=== PATIENT | male | born 1980 | race Caucasian/White ===

== ENCOUNTER 2017-08-06 17:06 | Emergency (ER) | payer OTHER ==
[~2017-08-06] VITALS: Ht 167.6 cm; Wt 79.5 kg
[2017-08-06] MEDS ORDERED: ZYPREXA 5MG5 MG PO (17:15)
[2017-08-06] MEDS ORDERED: REMERON45 MG PO (17:15)
[2017-08-06 18:02] LABS: COLLECTION METHOD CLEAN CATCH
[2017-08-06 18:10] LABS: MUCOUS Present /lpf; PH 5 (5-8); SQUAMOUS EPITHELIAL None Seen /hpf; URINE APPEARANCE Clear; URINE BACTERIA None Seen /hpf; URINE BILIRUBIN Negative (NEGATIVE); URINE BLOOD Negative (NEGATIVE); URINE COLOR Yellow; URINE GLUCOSE Negative (NEGATIVE); URINE KETONE Negative (NEGATIVE); URINE LEUKOCYTE ESTERASE Negative (NEGATIVE); URINE NITRATE Negative (NEGATIVE); URINE PROTEIN(semi-quant) Negative (NEGATIVE); URINE RBC 0-2 /hpf; URINE UROBILINOGEN Negative (NEGATIVE)
[2017-08-06 18:22] LABS: BASO # 0.1 (0.0-0.2); BASO % 0.8 % (0.0-2.0); EOS % 0.3 % (0-4.0); GRAN # 6.8 (1.4-6.5); GRAN % 75.2 % (42.2-75.2); HEMATOCRIT 45.4 % (42.0-52.0); HEMOGLOBIN 15.1 g/dl (13.5-18.0); LYMPH % 10.5 % (20.0-51.0); MEAN CELL VOLUME 88 fl (80.0-100.0); MEAN CORPUSCULAR HEMOGLOBIN 29 pg (27.0-31.0); MEAN CORPUSCULAR HGB CONC 33 g/dl (33.0-37.0); MEAN PLATELET VOLUME 10.3 fl (7.4-10.4); MONO # 1.2 (0.1-0.6); MONO % 12.9 % (1.7-9.3); PLATELET COUNT 227 K/mm3 (130-400); RED BLOOD COUNT 5.14 M/mm3 (4.20-5.60); REDCELL DISTRIBUTION WIDTH-CV 11.9 % (11.5-14.5)
[2017-08-06 18:31] LABS: ALANINE AMINOTRANSFERASE 36 U/L (21-72); ALBUMIN 5.2 gm/dL (3.5-5.0); ALKALINE PHOSPHATASE 55 U/L (50-136); ANION GAP 10 mmol/L (7-16); AST,SGOT 26 U/L (15-37); BILIRUBIN,TOTAL 0.3 mg/dL (0.0-1.0); BLOOD UREA NITROGEN 12 mg/dL (9-20); CALCIUM 9.3 mg/dL (8.4-10.2); CARBON DIOXIDE 27 mmol/L (22-30); CHLORIDE 101 mmol/L (98-107); CREATININE, serum 0.87 mg/dL (0.66-1.25); GLUCOSE 96 mg/dL (74-106); POTASSIUM 4.6 mmol/L (3.4-5.0); SODIUM 138 mmol/L (137-145); TOTAL PROTEIN 8.1 gm/dL (6.4-8.2)
[2017-08-06 18:45] LABS: TROPONIN-I < 0.012 ng/mL (0.000-0.034)
[2017-08-06] MEDS ORDERED: FLOMAX 0.40.4 MG/CAP PO (20:21)
== END 2017-08-06 20:38 | disposition home or self-care (01) ==
LOC: COL.ER 17:06
PROVIDERS: Emergency Medicine
DX: J06.9 Acute upper respiratory infection, unspecified (principal); R07.89 Other chest pain; R33.9 Retention of urine, unspecified; F41.9 Anxiety disorder, unspecified; Z88.0 Allergy status to penicillin; Z88.6 Allergy status to analgesic agent
CPT/HCPCS: J2270; J7030; Q9967

== ENCOUNTER 2022-09-22 23:20 | Emergency (ER) | payer SELFPAY ==
[~2022-09-22] VITALS: Ht 175.3 cm; Wt 77.3 kg
[~2022-09-22 23:20] MED LIST: FLOMAX 0.40.4 MG/CAP PO; REMERON45 MG PO; ZYPREXA 5MG5 MG PO
[2022-09-22 23:28] VITALS: TEMP 98
[2022-09-23 03:40] VITALS: BP 132/75; PULSE 98
== END 2022-09-23 03:40 | disposition home or self-care (01) ==
LOC: COL.ER 23:20
DX: M50.10 Cervical disc disorder with radiculopathy, unspecified cervical region (principal); Z28.310 Unvaccinated for COVID-19